=== PATIENT | male | born 1945 | race Caucasian/White ===

== ENCOUNTER 2022-03-18 15:01 | Emergency (ER) | payer MEDICARE, OTHER ==
[~2022-03-18] VITALS: Ht 182.9 cm; Wt 63.5 kg
[2022-03-18 16:35] VITALS: BP 124/71
== END 2022-03-18 16:42 | disposition home or self-care (01) ==
LOC: ER 15:01
DX: L76.22 Postprocedural hemorrhage of skin and subcutaneous tissue following other procedure (principal); I10 Essential (primary) hypertension
CPT/HCPCS: 12001

== ENCOUNTER 2024-09-29 13:30 | Emergency (ER) | payer MEDICARE ==
[~2024-09-29] VITALS: Ht 182.9 cm; Wt 66.7 kg
[2024-09-29 14:03] VITALS: BP 140/86; PULSE 61; RESP 16; O2SAT 97
[2024-09-29 14:44] LABS: Basophils # (auto) 0.1 10 ^3/uL (0-0.2); Basophils % (auto) 0.9 % (0.0-2.0); Eosinophils # (auto) 0 10 ^3/uL (0-0.8); Eosinophils % (auto) 0.3 % (0.0-7.0); Hematocrit 46.4 % (41.0-53.0); Hemoglobin 15.6 g/dL (13.5-17.5); Lymphocytes # (auto) 1.7 10 ^3/uL (0.4-5.4); Lymphocytes % (auto) 16.5 % (10.0-50.0); Mean Corpuscular Hemoglobin 31.5 pg (28.0-32.0); Mean Corpuscular Hgb Conc. 33.6 g/dL (32.0-36.0); Mean Corpuscular Volume 93.8 fL (80.0-100.0); Monocytes # (auto) 0.8 10 ^3/uL (0-1.3); Monocytes % (auto) 7.3 % (0.0-12.0); Neutrophils # (auto) 7.8 10 ^3/uL (1.6-8.6); Platelet Count (auto) 293 10^3/uL (140-450); Red Blood Cells 4.95 10^6/uL (4.5-5.90); White Blood Cell 10.4 10^3/uL (4.4-10.8)
[2024-09-29] MEDS: LIDOCAINE VISCOUS 2% 15ML UD MT ONE (14:44)
[2024-09-29 14:47] LABS: Chloride 105 mmol/L (98-107); Potassium 4.4 mmol/L (3.5-5.1); Sodium 141 mmol/L (136-145)
[2024-09-29 14:48] LABS: Anion Gap 8 (5-15); Calcium 10.4 mg/dL (8.7-10.4); Carbon Dioxide 28 mmol/L (20-31)
[2024-09-29 14:53] LABS: BUN/Creatinine Ratio 15.7 (10.0-20.0); Blood Urea Nitrogen 16 mg/dL (9-23); Glucose 84 mg/dL (74-106)
[2024-09-29 15:00] LABS: INR 1.02 (0.9-1.15); Partial Thromboplastin Time 27.1 SEC (24.5-34.5); Prothrombin Time 10.8 sec (9.3-11.8)
--- NOTE | 2024-09-29 16:18 | ED.PDOC ---
Epistaxis- HPI HPI Comments 79-year-old male with a history of hypertension and MS on aspirin 3 times a week brought in by family for evaluation of bleeding from his left nare for the past 3 hours. Patient and family report heavy bleeding which is intermittent, often with large clots. He denies any pain, recent injury, difficulty breathing or lightheadedness. He states he has had an MRI in the past which showed a nasal polyp, however did not require any treatment. He also has a history of seasonal allergies and takes cetirizine. Chief Complaint: Nose Bleed Time Seen by MD: 14:03 Primary Care Provider: RANDOLPH Allergies: Coded Allergies: NO KNOWN ALLERGIES (Unverified , 07/27/15) Mode of Arrival: Ambulatory Past Medical History PAST MEDICAL HISTORY: HTN Past Medical History (Other): MS Surgical History (Other): Knee surgery Family History Family History: Reviewed,noncontributory to illness Social History Smoker: Non-Smoker Alcohol: Denies ETOH Use Drugs: Denies Drug Use Lives In: Home All Other Systems: Reviewed and Negative (Comprehensive systems review obtained and negative except for what is stated in the HPI.) Physical Exam General Appearance: No Apparent Distress HEENT: Other (Pupils and face symmetric. Moist mucous membranes. Large clot inside left nare. Intermittent moderate dark red epistaxis.) Neck: Full Range of Motion, Normal Inspection Respiratory: Lungs Clear, No Accessory Muscle Use, No Respiratory Distress, Normal Breath Sounds Cardiovascular: No Edema, No JVD, Regular Rate/Rhythm Breast Exam: Deferred Gastrointestinal: Non Tender, Soft Genitalia: Deferred Pelvic: Deferred Rectal: Deferred Extremities: Normal inspection, Normal range of motion, Non-tender, No pedal edema Neurologic: Alert (Oriented x4), Normal Affect, Normal Mood, Other (Ambulatory without difficulty. No gross focal deficit.) Cerebellar Function: NOT DONE Reflexes: NOT DONE Skin: Dry, Normal Color, Warm Lymphatic: NOT DONE Was a procedure done? Was a procedure done?: Yes Sedation Sedation?: No Nasal Cautery and Pack Indicaton: Anterior epitaxis Location of packing: Left Packing: Expanding sponge Informed consent obtained: Yes Risks/benefits/alt described: Yes Notes Rhino rocket coated with viscous lidocaine was inserted into the left nare with adequate hemostasis. Patient tolerated the procedure well. Differential Diagnosis (NSB) Differential Diagnosis: Anterior Nasal Bleed, Posterior Nasal Bleed, Coagulopathy X-Ray, Labs, Meds, VS Vital Signs Date Time Temp Pulse Resp B/P (MAP) Pulse Ox O2 Delivery O2 Flow Rate FiO2 09/29/24 14:03 97.9 61 16 140/86 (104) 97 Lab Test 09/29/24 14:17 Range/Units White Blood Count 10.4 4.4-10.8 10^3/uL Red Blood Count 4.95 4.5-5.90 10^6/uL Hemoglobin 15.6 13.5-17.5 g/dL Hematocrit 46.4 41.0-53.0 % Mean Corpuscular Volume 93.8 80.0-100.0 fL Mean Corpuscular Hemoglobin 31.5 28.0-32.0 pg Mean Corpuscular Hemoglobin Concent 33.6 32.0-36.0 g/dL Red Cell Distribution Width 14.0 11.8-14.3 % Platelet Count 293 140-450 10^3/uL Mean Platelet Volume 7.7 6.9-10.8 fL Neutrophils (%) (Auto) 75.0 37.0-80.0 % Lymphocytes (%) (Auto) 16.5 10.0-50.0 % Monocytes (%) (Auto) 7.3 0.0-12.0 % Eosinophils (%) (Auto) 0.3 0.0-7.0 % Basophils (%) (Auto) 0.9 0.0-2.0 % Neutrophils # (Auto) 7.8 1.6-8.6 10 ^3/uL Lymphocytes # (Auto) 1.7 0.4-5.4 10 ^3/uL Monocytes # (Auto) 0.8 0-1.3 10 ^3/uL Eosinophils # (Auto) 0 0-0.8 10 ^3/uL Basophils # (Auto) 0.1 0-0.2 10 ^3/uL Nucleated Red Blood Cells 0.0 % Prothrombin Time 10.8 9.3-11.8 sec Prothrombin Time INR 1.02 0.9-1.15 Activated Partial Thromboplast Time 27.1 24.5-34.5 SEC Sodium Level 141 136-145 mmol/L Potassium Level 4.4 3.5-5.1 mmol/L Chloride Level 105 98-107 mmol/L Carbon Dioxide Level 28 20-31 mmol/L Anion Gap 8 5-15 Blood Urea Nitrogen 16 9-23 mg/dL Creatinine 1.02 0.700-1.30 mg/dL Glomerular Filtration Rate Calc 75 >90 mL/min BUN/Creatinine Ratio 15.7 10.0-20.0 Serum Glucose 84 74-106 mg/dL Calcium Level 10.4 8.7-10.4 mg/dL X-Ray, Labs, Meds, VS Comment 79-year-old male with a history of hypertension, MS, seasonal allergies and nasal polyps on aspirin 81 mg 3 times a week presenting with epistaxis Vitals unremarkable Exam remarkable for large clots inside the left naris. Intermittent moderate dark red bleeding. Rhythm strip independently interpreted by me: Sinus rhythm, rate 61, no ectopy. CBC, metabolic panel and coagulation panel unremarkable for any abnormality of acute significance Patient treated with the following in the ED: Nasal packing was inserted into the left nare with good hemostasis. Patient tolerated the procedure well. On re-evaluation, patient was pain-free, not short of breath, vitals were unremarkable, and he was hemodynamically stable. He appears stable for discharge with close follow-up with his primary physician in 1-2 days for re- evaluation at which point the packing may be removed. Time of 1ST Reevaluation: 16:16 Reevaluation 1ST: Improved Patient Education/Counseling: Diagnosis, Treatment, Need For Follow Up Family Education/Counseling: Diagnosis, Treatment, Need For Follow Up Departure 1 Departure Time of Disposition: 16:16 Impression: Primary Impression: Epistaxis Disposition: 01 HOME / SELF CARE / HOMELESS Condition: Stable Additional Instructions: Your blood tests were normal. Follow-up with your primary doctor in 1-2 days for nasal packing removal and for referral to an ENT (Ear, Nose and Throat) specialist. Return to ER for persistent or worsening symptoms. Discharged With: Relative Critical Care Note Critical Care Time?: No Stability Stability form required: No Heart Score Heart Score: Heart Score Response (Comments) Value History N/A 0 EKG N/A 0 Age N/A 0 Risk Factors N/A 0 Troponin N/A 0 Total 0 KRISHNA EVANS MD Sep 29, 2024 16:18
== END 2024-09-29 17:03 | disposition home or self-care (01) ==
LOC: ER 13:30
DX: R04.0 Epistaxis (principal); I10 Essential (primary) hypertension; Z98.890 Other specified postprocedural states
CPT/HCPCS: 30901; 36415; 80048; 85025; 85610; 85730

== ENCOUNTER 2024-10-14 07:16 | Emergency (ER) | payer MEDICARE ==
[~2024-10-14] VITALS: Ht 182.9 cm; Wt 66.5 kg
[2024-10-14 08:04] VITALS: BP 149/85; PULSE 56; RESP 18; TEMP 98.4; O2SAT 96
--- NOTE | 2024-10-14 08:21 | ED.PDOC ---
Epistaxis- HPI HPI Comments This is a pleasant 79-year-old male with a history of dementia that is brought in by his with a chief complaint of atraumatic epistaxis to the left nostril. Onto started suddenly 2 hours ago and has been unable to get adequate control or hemostasis. Patient reports she was seen here on September 29 with the same complaint. Patient was then discharged follow up with PCP the following day and obtained a ENT referral with [facility] ose[facility], however patient's canceled the appointment yesterday that she believes the symptoms have resolved. No other complaint or concern at this time. Denies chest pain shortness of breath or any other complaint Chief Complaint: Nose Bleed Time Seen by MD: 07:45 Primary Care Provider: JANNA Morales Notes: Nurses Notes, Medications, Allergies Allergies: Coded Allergies: NO KNOWN ALLERGIES (Unverified , 07/27/15) Information Source: Patient, Spouse Mode of Arrival: Ambulatory Past Medical History PAST MEDICAL HISTORY: HTN Family History Family History: Reviewed,noncontributory to illness Social History Smoker: Non-Smoker Alcohol: Denies ETOH Use Drugs: Denies Drug Use Lives In: Home All Other Systems: Reviewed and Negative (per hpi) Physical Exam General Appearance: No Apparent Distress, Normal HEENT: Normal ENT Inspection, Pharynx Normal, TMs Normal, Other (L nostril epistaxis. unable to visualize source of bleeding) Neck: Full Range of Motion, Non-Tender, Normal, Normal Inspection Respiratory: Chest Non-Tender, Lungs Clear, No Accessory Muscle Use, No Respiratory Distress, Normal Breath Sounds Cardiovascular: No Edema, No JVD, No Murmur, No Gallop, Normal Peripheral Puls es, Regular Rate/Rhythm Breast Exam: Deferred Gastrointestinal: No Organomegaly, Non Tender, No Pulsatile Mass, Normal Bowel Sounds, Soft Genitalia: Deferred Pelvic: Deferred Rectal: Deferred Extremities: No calf tenderness, Normal capillary refill, Normal inspection, Normal range of motion, Non-tender, No pedal edema Musculoskeletal : Apperance: Normal Neurologic: Alert, senior teller II-XII nml as Tested, No Motor Deficits, Normal Affect, Normal Mood, No Sensory Deficits Cerebellar Function: Normal Reflexes: Normal Skin: Dry, Normal Color, Warm Lymphatic: No Adenopathy Was a procedure done? Was a procedure done?: No Differential Diagnosis (NSB) Differential Diagnosis: Anterior Nasal Bleed X-Ray, Labs, Meds, VS Vital Signs Date Time Temp Pulse Resp B/P (MAP) Pulse Ox O2 Delivery O2 Flow Rate FiO2 10/14/24 08:04 98.4 56 18 149/85 (106) 96 98.4 10/14/24 07:29 97.5 56 20 152/94 (113) 98 Current Medications Medications (Trade) Dose Ordered Sig/Toya Route Start Time Stop Time Status Last Admin Oxymetazoline HCl (Afrin) 1 spr ONCE ONCE EACHNOSTRI 10/14/24 08:30 10/14/24 08:31 DC 10/14/24 08:50 X-Ray, Labs, Meds, VS Comment After ROS and physical examination, differentials considered but not limited to: URI, trauma, nose picking, environmental irritants, pt not on anticoagulants The bleeding source appears to be anterior in origin. Blood clots were cleared by having the patient blow them out into a towel. Then, rapid rhino nasal packing placed by me to affected nare. No further bleeding appreciated. Patient tolerated procedure well without difficulty. No evidence of posterior pharyngeal bleeding nor significant trauma and no suspicion for coagulopathy. Recommended no nose blowing, no digitial trauma. Referral to [facility] for follow up removal of packing and definitive evaluation and treatment. Return to Emergency Department precautions given. Time of 1ST Reevaluation: 08:21 Reevaluation 1ST: Improved Patient Education/Counseling: Diagnosis, Treatment Family Education/Counseling: Diagnosis, Treatment Departure 1 Departure Time of Disposition: 09:12 Impression: Primary Impression: Epistaxis Disposition: 01 HOME / SELF CARE / HOMELESS Condition: Fair Discharged With: Spouse Critical Care Note Critical Care Time?: No Stability Stability form required: No Heart Score Heart Score: Heart Score Response (Comments) Value History N/A 0 EKG N/A 0 Age N/A 0 Risk Factors N/A 0 Troponin N/A 0 Total 0 BROWN JONES [employer] Oct 14, 2024 08:21
[2024-10-14] MEDS: OXYMETAZOLINE HCL 0.05 % NASAL SPRAY 15ML EACHNOSTRI ONE (08:50)
== END 2024-10-14 09:11 | disposition home or self-care (01) ==
LOC: ER 07:16
DX: R04.0 Epistaxis (principal); I10 Essential (primary) hypertension
CPT/HCPCS: 30901

== ENCOUNTER 2024-10-17 09:40 | Emergency (ER) | payer MEDICARE ==
[~2024-10-17] VITALS: Ht 182.9 cm; Wt 64.4 kg
[2024-10-17 10:18] VITALS: BP 118/81; PULSE 64; RESP 16; TEMP 98.6; O2SAT 98
--- NOTE | 2024-10-17 10:37 | ED.PDOC ---
History of Present Illness HPI Comments A 79 YEAR OLD MALE PRESENTS TO THE ED WITH COMPLAINT OF NASAL PACKING REMOVAL. PATIENT STATES HE HAD NASAL PACKING PLACED IN HIS LEFT NOSTRIL 3 DAYS AGO AND IS HERE IN THE ED TODAY TO HAVE IT REMOVED. PATIENT DENIES FEVER, CHILLS, SHORTNESS OF BREATH, CHEST PAIN, ABDOMINAL PAIN, NAUSEA, VOMITING, HEADACHE, OR OTHER COMPLAINTS. NO OTHER SYMPTOMS OR MODIFYING FACTORS AT THIS TIME. PATIENT IS ALERT, ORIENTED X 4, AND HAS STEADY GAIT. Chief Complaint: Nose Bleed Time Seen by MD: 09:59 Primary Care Provider: RANDOLPH Reviewed Notes: Nurses Notes, Medications, Allergies Allergies: Coded Allergies: NO KNOWN ALLERGIES (Unverified , 07/27/15) Information Source: Patient Mode of Arrival: Ambulatory Severity: None Timing: Days Duration: Since onset, Other Prehospital treatment: None Medication Refill: For: Other (NASAL PACKING REMOVAL) Past Medical History PAST MEDICAL HISTORY: HTN Surgical History: Denies all surgeries Family History Family History: Reviewed,noncontributory to illness Social History Smoker: Non-Smoker Alcohol: Denies ETOH Use Drugs: Denies Drug Use Lives In: Home Constitutional: denies: chills, diaphoresis, fatigue, fever, malaise, sweats, weakness, others EENTM: reports: nose bleeding; denies: blurred vision, double vision, ear bleeding, ear discharge, ear drainage, ear pain, ear ringing, eye pain, eye redness, hearing loss, mouth pain, mouth swelling, nasal discharge, nose congestion, nose pain, photophobia, tearing, throat pain, throat swelling, voice changes, others Respiratory: denies: cough, hemoptysis, orthopnea, SOB at rest, shortness of breath, SOB with excertion, stridor, wheezing, others Cardiovascular: denies: chest pain, dizzy spells, diaphoresis, Dyspnea on exertion, edema, irregular heart beat, left arm pain, lightheadedness, palpita tions, PND, syncope, others Gastrointestinal: denies: abdomen distended, abdominal pain, blood streaked arthur wels, constipated, diarrhea, dysphagia, difficulty swallowing, hematemesis, melena, nausea, poor appetite, poor fluid intake, rectal bleeding, rectal pain, vomiting, others Genitourinary: denies: burning, dysuria, flank pain, frequency, hematuria, incontinence, penile discharge, penile sore, pain, testicle pain, testicle swelling, urgency, others Neurological: denies: dizziness, fainting, headache, left sided numbness, left sided weakness, numbness, paresthesia, pre-existing deficit, right sided numbness, right sided weakness, seizure, speech problems, tingling, tremors, weakness, others Musculoskeletal: denies: back pain, gout, joint pain, joint swelling, muscle pain, muscle stiffness, neck pain, others Integumetry: denies: bruises, change in color, change in hair/nails, dryness, laceration, lesions, lumps, rash, wounds, others Allergic/Immunocompromised: denies: Difficulty Healing, Frequent Infections, Hives, Itching, others Hematologic/Lymphatic: denies: anemia, blood clots, easy bleeding, easy bruisin g, swollen glands, others Endocrine: denies: excessive hunger, excessive sweating, excessive thirst, excessive urination, flushing, intolerance to cold, intolerance to heat, unexplained weight gain, unexplained weight loss, others Psychiatric: denies: anxiety, bipolar disorder, depression, hopeless, panic disorder, schizophrenia, sleepless, suicidal, others All Other Systems: Reviewed and Negative Physical Exam General Appearance: No Apparent Distress, Normal HEENT: PERRL/EOMI, Pharynx Normal, TMs Normal, Other (NASAL PACKING INTACT OF LEFT NOSTRIL, WHEN REMOVING NASAL PACKING, LEFT NOSTRIL BEGAN TO BLEED MILDLY, +ANTERIOR EPISTAXIS, NO BLOOD CLOTS NOTED.) Neck: Full Range of Motion, Non-Tender, Normal, Normal Inspection Respiratory: Chest Non-Tender, Lungs Clear, No Accessory Muscle Use, No Respiratory Distress, Normal Breath Sounds Cardiovascular: No Edema, No JVD, No Murmur, No Gallop, Normal Peripheral Pulses, Regular Rate/Rhythm Breast Exam: Deferred Gastrointestinal: No Organomegaly, Non Tender, No Pulsatile Mass, Normal Bowel Sounds, Soft Genitalia: Deferred Pelvic: Deferred Rectal: Deferred Extremities: No calf tenderness, Normal capillary refill, Normal inspection, Normal range of motion, Non-tender, No pedal edema Musculoskeletal : Apperance: Normal Neurologic: Alert, java developer analyst II-XII nml as Tested, No Motor Deficits, Normal Affect, Normal Mood, No Sensory Deficits Cerebellar Function: Normal Reflexes: Normal Skin: Dry, Normal Color, Warm Peripheral Pulses: 2+ carotid (R), 2+ carotid (L) Lymphatic: No Adenopathy Was a procedure done? Was a procedure done?: No Differential Dx Considerations may include: NASAL PACKING REMOVAL, ANTERIOR EPISTAXIS X-Ray, Labs, Meds, VS Vital Signs Date Time Temp Pulse Resp B/P (MAP) Pulse Ox O2 Delivery O2 Flow Rate FiO2 10/17/24 10:18 98.6 64 16 118/81 (93) 98 98.6 10/17/24 10:18 64 16 98 Room Air 10/17/24 09:48 98.6 64 16 118/81 (93) 98 X-Ray, Labs, Meds, VS Comment EXTERNAL MEDICAL RECORDS REVIEWED: [NONE] INDEPENDENT HISTORIANS: [NONE] SOCIAL DETERMINANTS OF HEALTH: [NONE] LABS ORDERED: NONE REVIEWED AND INTERPRETED RESULTS: NONE IMAGING ORDERED: NONE TREATMENTS ORDERED: PATIENT WAS INSTRUCTED TO BLOW HIS LEFT NOSTRIL TO REMOVE ANY BLOOD CLOTS. +ANTERIOR EPISTAXIS. 1 SPRAY OF AFRIN WAS APPLIED TO PATIENT'S LEFT NOSTRIL AND HE WAS THEN MONITORED FOR ABOUT 30 MINUTES. NO BLEEDING WAS NOTED. PATIENT TOLERATED WELL. PROCEDURES PERFORMED: NONE CRITICAL CARE TIME: NONE I HAVE DISCUSSED THE PATIENT WITH THE ATTENDING PHYSICIAN DR. DONNELLY AND HE AGREES WITH THE PATIENT'S PLAN OF CARE AND DISPOSITION. BASED ON HISTORY OF PRESENT ILLNESS, AND PHYSICAL EXAM, PATIENT WILL BE DISCHARGED HOME. DISCUSSED PLAN FOR DISCHARGE HOME WITH RX []. MEDICATION WARNINGS GIVEN. SHARED DECISION MAKING: PATIENT INSTRUCTED TO FOLLOW UP WITH PRIMARY CARE PROVIDER IN 1-2 DAYS FOR RE-EVALUATION OF SYMPTOMS. PATIENT VERBALIZES UNDERSTANDING TO RETURN TO ED FOR NEW OR WORSENING SYMPTOMS OR IF FOLLOW UP WITH PCP CANNOT BE OBTAINED. PATIENT FEELS COMFORTABLE GOING HOME AT THIS TIME. ALL QUESTIONS ADDRESSED AT TIME OF DISCHARGE. Time of 1ST Reevaluation: 11:00 Reevaluation 1ST: Improved Patient Education/Counseling: Diagnosis, Treatment, Need For Follow Up Family Education/Counseling: Diagnosis, Treatment, Need For Follow Up Medical Screening: No EMC Exist At This Time Departure 1 Departure Time of Disposition: 11:00 Impression: Primary Impression: Anterior epistaxis Additional Impression: Encounter for removal of nasal packing Disposition: 01 HOME / SELF CARE / HOMELESS Condition: Stable Additional Instructions: FOLLOW-UP WITH PCP IN 1 TO 2 DAYS. RETURN TO ED FOR ANY NEW OR WORSENING SY MPTOMS. Discharged With: Self Critical Care Note Critical Care Time?: No Stability Stability form required: No I personally scribed for MORGAN ANDREW ([email or web address]) on 10/17/24 at 10:37. Electronically submitted by Rasta Rosario ([email or web address]). MORGAN ANDREW Oct 17, 2024 10:37
[2024-10-17] MEDS: OXYMETAZOLINE HCL 0.05 % NASAL SPRAY 15ML EACHNOSTRI ONE (10:56)
== END 2024-10-17 10:58 | disposition home or self-care (01) ==
LOC: ER 09:40
DX: R04.0 Epistaxis (principal); I10 Essential (primary) hypertension; Z48.00 Encounter for change or removal of nonsurgical wound dressing